=== PATIENT | male | born 1990 | race Two or more races ===

== ENCOUNTER 2022-02-21 19:13 | Emergency (ER) | payer MEDICAID ==
[~2022-02-21] VITALS: Ht 160 cm; Wt 68.0 kg
[2022-02-21 19:40] VITALS: BP 134/70
--- NOTE | 2022-02-21 20:05 | NUR ---
Patient discharged to home in stable condition. Written and verbal after care instructions given. Patient verbalizes understanding of instruction.
== END 2022-02-21 21:22 | disposition home or self-care (01) ==
LOC: ER 19:15
DX: S01.111A Laceration without foreign body of right eyelid and periocular area, initial encounter (principal); W22.8XXA Striking against or struck by other objects, initial encounter; Y93.89 Activity, other specified; Y92.89 Other specified places as the place of occurrence of the external cause; Y99.8 Other external cause status

== ENCOUNTER 2022-04-24 14:18 | Emergency (ER) | payer SELFPAY ==
[~2022-04-24] VITALS: Ht 157.5 cm; Wt 69.4 kg
[2022-04-24 14:31] VITALS: BP 114/79
[2022-04-24] MEDS ORDERED: DEXAMETHASONE SOD PHOSPHATE 10 MG/ML VIAL ONE (15:13)
[2022-04-24] MEDS ORDERED: BENZ-13 PO (15:16)
[2022-04-24] MEDS ORDERED: LORA10TA68 PO (15:16)
--- NOTE | 2022-04-24 15:29 | NUR ---
Patient discharged to home in stable condition. Written and verbal after care instructions given. Patient verbalizes understanding of instruction.
[2022-04-24] MEDS ORDERED: DEXAMETHASONE SOD PHOSPHATE 10 MG/ML VIAL IM ONE (15:30)
== END 2022-04-24 15:29 | disposition home or self-care (01) ==
LOC: ER 14:19
DX: R05.9 Cough, unspecified (principal); R07.0 Pain in throat; Z60.2 Problems related to living alone; Z79.899 Other long term (current) drug therapy
CPT/HCPCS: 99283; 96372; 87880; J1100; 86403-TC

== ENCOUNTER 2023-03-08 19:42 | Emergency (ER) | payer SELFPAY ==
[~2023-03-08] VITALS: Ht 152.4 cm; Wt 71.7 kg
[~2023-03-08 19:42] MED LIST: BENZ-13 PO; LORA10TA68 PO
[2023-03-08] MEDS ORDERED: predniSONE 20 MG TABLET ONE (20:42)
[2023-03-08] MEDS ORDERED: diphenhydrAMINE HCL 25 MG CAPSULE ONE (20:42)
[2023-03-08] MEDS ORDERED: DIPH25CA83 PO (20:51)
[2023-03-08] MEDS ORDERED: PRED50TA PO (20:51)
[2023-03-08] MEDS ORDERED: diphenhydrAMINE HCL 25 MG CAPSULE PO ONE (21:00)
[2023-03-08] MEDS ORDERED: predniSONE 50 MG TABLET PO ONE (21:00)
[2023-03-08 21:21] VITALS: BP 130/70; TEMP 99.1; O2SAT 100
== END 2023-03-08 21:21 | disposition home or self-care (01) ==
LOC: ER 19:59
DX: R21 Rash and other nonspecific skin eruption (principal); T43.225A Adverse effect of selective serotonin reuptake inhibitors, initial encounter; F41.9 Anxiety disorder, unspecified; Z91.013 Allergy to seafood; Z60.2 Problems related to living alone; Z79.899 Other long term (current) drug therapy; Y92.89 Other specified places as the place of occurrence of the external cause
CPT/HCPCS: 99283; Q0163; J7512